=== PATIENT | male | born 1930 | race Caucasian/White ===

== ENCOUNTER → 2016-08-22 | Outpatient (CLI) | payer OTHER, MEDICARE ==
[~2016-08-22] MED LIST: AMITRIPTYLINE H25 M2 PO; APAP500 PO; ASPIR 8181 MG PO; BIOTIN2500 MCG PO; CHROMIUM200 MCG PO; DEMADEX10 MG PO; GLUCOPHAGE XR750 MG PO; GLUCOPHAGE500 MG OR; HYDROCODONE-AP1 EAC6 PO; LANTUS SUBQ; LISINOPRIL10 MG PO; LISINOPRIL5 MG OR; LOPRESSOR25 PO; NIACIN SR 250250 MG PO; NORCO 5-325 TA1 EACH PO; NOVOLOG100 UNIT/1 SUBQ; PLAVIX 75 MG TA75 M1 PO; PRAVACHOL40 MG PO; TOPROL XL25 MG OR; TUMS PO; VANCO 1.251.25 GM/25 IV; VITAMIN D1000 UNI1 PO; ZOFRAN ODT4 MG PO; [UNRECOGNIZED DRUG - OTHER] OR
== END ==
LOC: HYPER 07:06
DX: I70.243 Atherosclerosis of native arteries of left leg with ulceration of ankle (principal); L97.322 Non-pressure chronic ulcer of left ankle with fat layer exposed; E11.622 Type 2 diabetes mellitus with other skin ulcer; L89.512 Pressure ulcer of right ankle, stage 2; S81.802D Unspecified open wound, left lower leg, subsequent encounter; E11.51 Type 2 diabetes mellitus with diabetic peripheral angiopathy without gangrene; E11.40 Type 2 diabetes mellitus with diabetic neuropathy, unspecified; I70.211 Atherosclerosis of native arteries of extremities with intermittent claudication, right leg; I25.10 Atherosclerotic heart disease of native coronary artery without angina pectoris; E78.00 Pure hypercholesterolemia, unspecified; I95.1 Orthostatic hypotension; X58.XXXD Exposure to other specified factors, subsequent encounter; Z79.4 Long term (current) use of insulin; Z79.84 Long term (current) use of oral hypoglycemic drugs; Z86.73 Personal history of transient ischemic attack (TIA), and cerebral infarction without residual deficits; Z87.891 Personal history of nicotine dependence; Z72.89 Other problems related to lifestyle

== ENCOUNTER → 2016-09-05 | Outpatient (CLI) | payer OTHER, MEDICARE | LOC: HYPER 07:07 | DX: I70.243 Atherosclerosis of native arteries of left leg with ulceration of ankle (principal); L97.322 Non-pressure chronic ulcer of left ankle with fat layer exposed; E11.622 Type 2 diabetes mellitus with other skin ulcer; L89.512 Pressure ulcer of right ankle, stage 2; L89.621 Pressure ulcer of left heel, stage 1; I70.211 Atherosclerosis of native arteries of extremities with intermittent claudication, right leg; S81.802D Unspecified open wound, left lower leg, subsequent encounter; E11.51 Type 2 diabetes mellitus with diabetic peripheral angiopathy without gangrene; E11.40 Type 2 diabetes mellitus with diabetic neuropathy, unspecified; E78.00 Pure hypercholesterolemia, unspecified; X58.XXXD Exposure to other specified factors, subsequent encounter; Z79.4 Long term (current) use of insulin; Z79.84 Long term (current) use of oral hypoglycemic drugs; Z87.891 Personal history of nicotine dependence; Z72.89 Other problems related to lifestyle; Z86.73 Personal history of transient ischemic attack (TIA), and cerebral infarction without residual deficits ==

== ENCOUNTER → 2016-09-13 | Outpatient (CLI) | payer OTHER, MEDICARE | LOC: HYPER 09:48 | DX: I70.243 Atherosclerosis of native arteries of left leg with ulceration of ankle (principal); L97.321 Non-pressure chronic ulcer of left ankle limited to breakdown of skin; I95.1 Orthostatic hypotension; L89.512 Pressure ulcer of right ankle, stage 2; E78.00 Pure hypercholesterolemia, unspecified; E11.40 Type 2 diabetes mellitus with diabetic neuropathy, unspecified; L89.621 Pressure ulcer of left heel, stage 1; E11.622 Type 2 diabetes mellitus with other skin ulcer; Z79.4 Long term (current) use of insulin; Z79.84 Long term (current) use of oral hypoglycemic drugs; Z95.1 Presence of aortocoronary bypass graft; Z86.73 Personal history of transient ischemic attack (TIA), and cerebral infarction without residual deficits; Z87.891 Personal history of nicotine dependence; Z72.89 Other problems related to lifestyle ==

== ENCOUNTER → 2016-11-01 | Outpatient (CLI) | payer OTHER, MEDICARE | LOC: HYPER 09-13 16:43 | DX: I70.243 Atherosclerosis of native arteries of left leg with ulceration of ankle (principal); L97.322 Non-pressure chronic ulcer of left ankle with fat layer exposed; E11.622 Type 2 diabetes mellitus with other skin ulcer; L97.312 Non-pressure chronic ulcer of right ankle with fat layer exposed; L89.621 Pressure ulcer of left heel, stage 1; E11.51 Type 2 diabetes mellitus with diabetic peripheral angiopathy without gangrene; E11.40 Type 2 diabetes mellitus with diabetic neuropathy, unspecified; E78.00 Pure hypercholesterolemia, unspecified; I70.211 Atherosclerosis of native arteries of extremities with intermittent claudication, right leg; G60.8 Other hereditary and idiopathic neuropathies; Z79.4 Long term (current) use of insulin; Z79.84 Long term (current) use of oral hypoglycemic drugs; Z86.73 Personal history of transient ischemic attack (TIA), and cerebral infarction without residual deficits; Z87.891 Personal history of nicotine dependence; Z72.89 Other problems related to lifestyle ==

== ENCOUNTER → 2016-11-28 | Outpatient (CLI) | payer OTHER, MEDICARE | LOC: HYPER 07:02 | DX: I70.243 Atherosclerosis of native arteries of left leg with ulceration of ankle (principal); L97.322 Non-pressure chronic ulcer of left ankle with fat layer exposed; L89.512 Pressure ulcer of right ankle, stage 2; E11.622 Type 2 diabetes mellitus with other skin ulcer; E11.51 Type 2 diabetes mellitus with diabetic peripheral angiopathy without gangrene; E78.00 Pure hypercholesterolemia, unspecified; E11.40 Type 2 diabetes mellitus with diabetic neuropathy, unspecified; I95.1 Orthostatic hypotension; Z95.1 Presence of aortocoronary bypass graft; Z87.891 Personal history of nicotine dependence; Z72.89 Other problems related to lifestyle; Z79.4 Long term (current) use of insulin; Z79.84 Long term (current) use of oral hypoglycemic drugs; Z86.73 Personal history of transient ischemic attack (TIA), and cerebral infarction without residual deficits ==

== ENCOUNTER → 2016-12-26 | Outpatient (CLI) | payer OTHER, MEDICARE | LOC: HYPER 07:01 | DX: I70.243 Atherosclerosis of native arteries of left leg with ulceration of ankle (principal); L97.322 Non-pressure chronic ulcer of left ankle with fat layer exposed; E11.622 Type 2 diabetes mellitus with other skin ulcer; R60.0 Localized edema; G60.8 Other hereditary and idiopathic neuropathies; L89.512 Pressure ulcer of right ankle, stage 2; E11.39 Type 2 diabetes mellitus with other diabetic ophthalmic complication; H40.9 Unspecified glaucoma; I25.10 Atherosclerotic heart disease of native coronary artery without angina pectoris; E78.00 Pure hypercholesterolemia, unspecified; E11.40 Type 2 diabetes mellitus with diabetic neuropathy, unspecified; E11.51 Type 2 diabetes mellitus with diabetic peripheral angiopathy without gangrene; I95.1 Orthostatic hypotension; Z86.73 Personal history of transient ischemic attack (TIA), and cerebral infarction without residual deficits; Z79.4 Long term (current) use of insulin; Z79.84 Long term (current) use of oral hypoglycemic drugs; Z98.49 Cataract extraction status, unspecified eye; Z95.1 Presence of aortocoronary bypass graft; Z87.891 Personal history of nicotine dependence; Z72.89 Other problems related to lifestyle; Z68.21 Body mass index [BMI] 21.0-21.9, adult ==

== ENCOUNTER → 2017-01-23 | Outpatient (CLI) | payer OTHER, MEDICARE | LOC: HYPER 07:03 | DX: I70.243 Atherosclerosis of native arteries of left leg with ulceration of ankle (principal); I70.211 Atherosclerosis of native arteries of extremities with intermittent claudication, right leg; E11.622 Type 2 diabetes mellitus with other skin ulcer; L97.312 Non-pressure chronic ulcer of right ankle with fat layer exposed; L97.322 Non-pressure chronic ulcer of left ankle with fat layer exposed; E11.51 Type 2 diabetes mellitus with diabetic peripheral angiopathy without gangrene; R60.0 Localized edema; G60.8 Other hereditary and idiopathic neuropathies; I25.10 Atherosclerotic heart disease of native coronary artery without angina pectoris; E78.00 Pure hypercholesterolemia, unspecified; E11.40 Type 2 diabetes mellitus with diabetic neuropathy, unspecified; Z79.84 Long term (current) use of oral hypoglycemic drugs; Z79.4 Long term (current) use of insulin; Z87.891 Personal history of nicotine dependence; Z72.89 Other problems related to lifestyle; Z95.1 Presence of aortocoronary bypass graft ==

== ENCOUNTER → 2017-02-20 | Outpatient (CLI) | payer OTHER, MEDICARE | LOC: HYPER 06:58 | DX: I70.243 Atherosclerosis of native arteries of left leg with ulceration of ankle (principal); L97.322 Non-pressure chronic ulcer of left ankle with fat layer exposed; L89.513 Pressure ulcer of right ankle, stage 3; E11.622 Type 2 diabetes mellitus with other skin ulcer; L97.312 Non-pressure chronic ulcer of right ankle with fat layer exposed; E11.51 Type 2 diabetes mellitus with diabetic peripheral angiopathy without gangrene; G60.8 Other hereditary and idiopathic neuropathies; E11.39 Type 2 diabetes mellitus with other diabetic ophthalmic complication; H40.9 Unspecified glaucoma; I25.10 Atherosclerotic heart disease of native coronary artery without angina pectoris; E78.00 Pure hypercholesterolemia, unspecified; E11.40 Type 2 diabetes mellitus with diabetic neuropathy, unspecified; I95.1 Orthostatic hypotension; Z98.49 Cataract extraction status, unspecified eye; Z95.1 Presence of aortocoronary bypass graft; Z87.891 Personal history of nicotine dependence; Z72.89 Other problems related to lifestyle; Z79.4 Long term (current) use of insulin; Z79.84 Long term (current) use of oral hypoglycemic drugs; Z86.73 Personal history of transient ischemic attack (TIA), and cerebral infarction without residual deficits ==

== ENCOUNTER → 2017-03-13 | Outpatient (CLI) | payer OTHER, MEDICARE | LOC: HYPER 06:57 | DX: E11.622 Type 2 diabetes mellitus with other skin ulcer (principal); L97.312 Non-pressure chronic ulcer of right ankle with fat layer exposed; L97.322 Non-pressure chronic ulcer of left ankle with fat layer exposed; I70.243 Atherosclerosis of native arteries of left leg with ulceration of ankle; L89.519 Pressure ulcer of right ankle, unspecified stage; E11.51 Type 2 diabetes mellitus with diabetic peripheral angiopathy without gangrene; I70.211 Atherosclerosis of native arteries of extremities with intermittent claudication, right leg; E11.40 Type 2 diabetes mellitus with diabetic neuropathy, unspecified; Z79.4 Long term (current) use of insulin; Z79.84 Long term (current) use of oral hypoglycemic drugs; Z86.73 Personal history of transient ischemic attack (TIA), and cerebral infarction without residual deficits; E78.00 Pure hypercholesterolemia, unspecified; I25.10 Atherosclerotic heart disease of native coronary artery without angina pectoris; Z87.891 Personal history of nicotine dependence; Z72.89 Other problems related to lifestyle; Z95.1 Presence of aortocoronary bypass graft ==

== ENCOUNTER → 2017-04-03 | Outpatient (CLI) | payer OTHER, MEDICARE | LOC: HYPER 06:59 | DX: E11.622 Type 2 diabetes mellitus with other skin ulcer (principal); L97.312 Non-pressure chronic ulcer of right ankle with fat layer exposed; L97.322 Non-pressure chronic ulcer of left ankle with fat layer exposed; I70.243 Atherosclerosis of native arteries of left leg with ulceration of ankle; I70.211 Atherosclerosis of native arteries of extremities with intermittent claudication, right leg; E11.51 Type 2 diabetes mellitus with diabetic peripheral angiopathy without gangrene; R60.0 Localized edema; G60.8 Other hereditary and idiopathic neuropathies; E78.00 Pure hypercholesterolemia, unspecified; Z79.4 Long term (current) use of insulin; Z79.84 Long term (current) use of oral hypoglycemic drugs; I25.10 Atherosclerotic heart disease of native coronary artery without angina pectoris; Z86.73 Personal history of transient ischemic attack (TIA), and cerebral infarction without residual deficits; Z95.1 Presence of aortocoronary bypass graft; Z87.891 Personal history of nicotine dependence ==

== ENCOUNTER → 2017-04-24 | Outpatient (CLI) | payer OTHER, MEDICARE | LOC: HYPER 06:47 | DX: I70.243 Atherosclerosis of native arteries of left leg with ulceration of ankle (principal); L89.513 Pressure ulcer of right ankle, stage 3; E11.622 Type 2 diabetes mellitus with other skin ulcer; L97.322 Non-pressure chronic ulcer of left ankle with fat layer exposed; L97.312 Non-pressure chronic ulcer of right ankle with fat layer exposed; E11.40 Type 2 diabetes mellitus with diabetic neuropathy, unspecified; G60.8 Other hereditary and idiopathic neuropathies; E11.39 Type 2 diabetes mellitus with other diabetic ophthalmic complication; H40.9 Unspecified glaucoma; I25.10 Atherosclerotic heart disease of native coronary artery without angina pectoris; E78.00 Pure hypercholesterolemia, unspecified; I95.1 Orthostatic hypotension; Z95.1 Presence of aortocoronary bypass graft; Z79.4 Long term (current) use of insulin; Z86.73 Personal history of transient ischemic attack (TIA), and cerebral infarction without residual deficits; Z79.84 Long term (current) use of oral hypoglycemic drugs; Z98.49 Cataract extraction status, unspecified eye; Z87.891 Personal history of nicotine dependence; Z72.89 Other problems related to lifestyle ==

== ENCOUNTER → 2017-05-22 | Outpatient (CLI) | payer OTHER, MEDICARE | LOC: HYPER 05-15 10:20 | DX: E11.622 Type 2 diabetes mellitus with other skin ulcer (principal); L97.322 Non-pressure chronic ulcer of left ankle with fat layer exposed; L89.513 Pressure ulcer of right ankle, stage 3; L97.312 Non-pressure chronic ulcer of right ankle with fat layer exposed; E11.51 Type 2 diabetes mellitus with diabetic peripheral angiopathy without gangrene; I70.211 Atherosclerosis of native arteries of extremities with intermittent claudication, right leg; Z79.4 Long term (current) use of insulin; Z79.84 Long term (current) use of oral hypoglycemic drugs; G60.8 Other hereditary and idiopathic neuropathies ==

== ENCOUNTER → 2017-06-03 | Outpatient (CLI) | payer OTHER, MEDICARE | LOC: HYPER 07:20 | DX: E11.622 Type 2 diabetes mellitus with other skin ulcer (principal); L97.312 Non-pressure chronic ulcer of right ankle with fat layer exposed; I70.243 Atherosclerosis of native arteries of left leg with ulceration of ankle; L97.322 Non-pressure chronic ulcer of left ankle with fat layer exposed; I70.233 Atherosclerosis of native arteries of right leg with ulceration of ankle; Z79.4 Long term (current) use of insulin; Z79.84 Long term (current) use of oral hypoglycemic drugs; G60.8 Other hereditary and idiopathic neuropathies; E78.00 Pure hypercholesterolemia, unspecified; E11.40 Type 2 diabetes mellitus with diabetic neuropathy, unspecified; Z87.891 Personal history of nicotine dependence; Z72.89 Other problems related to lifestyle ==

== ENCOUNTER → 2017-06-19 | Outpatient (CLI) | payer OTHER, MEDICARE | LOC: HYPER 07:06 | DX: I70.243 Atherosclerosis of native arteries of left leg with ulceration of ankle (principal); I70.233 Atherosclerosis of native arteries of right leg with ulceration of ankle; L89.513 Pressure ulcer of right ankle, stage 3; E11.622 Type 2 diabetes mellitus with other skin ulcer; L97.322 Non-pressure chronic ulcer of left ankle with fat layer exposed; L97.312 Non-pressure chronic ulcer of right ankle with fat layer exposed; L84 Corns and callosities; E11.40 Type 2 diabetes mellitus with diabetic neuropathy, unspecified; E11.39 Type 2 diabetes mellitus with other diabetic ophthalmic complication; H40.9 Unspecified glaucoma; I25.10 Atherosclerotic heart disease of native coronary artery without angina pectoris; E78.00 Pure hypercholesterolemia, unspecified; I95.1 Orthostatic hypotension; Z98.49 Cataract extraction status, unspecified eye; Z95.1 Presence of aortocoronary bypass graft; Z87.891 Personal history of nicotine dependence; Z79.4 Long term (current) use of insulin; Z86.73 Personal history of transient ischemic attack (TIA), and cerebral infarction without residual deficits; Z79.84 Long term (current) use of oral hypoglycemic drugs; Z72.89 Other problems related to lifestyle ==

== ENCOUNTER → 2017-07-01 | Outpatient (CLI) | payer OTHER, MEDICARE | LOC: HYPER 07:36 | DX: E11.622 Type 2 diabetes mellitus with other skin ulcer (principal); L97.312 Non-pressure chronic ulcer of right ankle with fat layer exposed; L97.322 Non-pressure chronic ulcer of left ankle with fat layer exposed; I70.243 Atherosclerosis of native arteries of left leg with ulceration of ankle; I70.233 Atherosclerosis of native arteries of right leg with ulceration of ankle; E11.51 Type 2 diabetes mellitus with diabetic peripheral angiopathy without gangrene; R60.0 Localized edema; G60.8 Other hereditary and idiopathic neuropathies; I25.10 Atherosclerotic heart disease of native coronary artery without angina pectoris; Z86.73 Personal history of transient ischemic attack (TIA), and cerebral infarction without residual deficits; E11.40 Type 2 diabetes mellitus with diabetic neuropathy, unspecified; E78.00 Pure hypercholesterolemia, unspecified; Z95.1 Presence of aortocoronary bypass graft; Z87.891 Personal history of nicotine dependence; Z79.4 Long term (current) use of insulin; Z79.84 Long term (current) use of oral hypoglycemic drugs ==

== ENCOUNTER → 2017-07-17 | Outpatient (CLI) | payer OTHER, MEDICARE | LOC: HYPER 07:57 | DX: I70.243 Atherosclerosis of native arteries of left leg with ulceration of ankle (principal); L97.322 Non-pressure chronic ulcer of left ankle with fat layer exposed; L97.312 Non-pressure chronic ulcer of right ankle with fat layer exposed; E11.622 Type 2 diabetes mellitus with other skin ulcer; I70.233 Atherosclerosis of native arteries of right leg with ulceration of ankle; E11.51 Type 2 diabetes mellitus with diabetic peripheral angiopathy without gangrene; G60.8 Other hereditary and idiopathic neuropathies; S91.302D Unspecified open wound, left foot, subsequent encounter; E11.39 Type 2 diabetes mellitus with other diabetic ophthalmic complication; H40.9 Unspecified glaucoma; Z86.73 Personal history of transient ischemic attack (TIA), and cerebral infarction without residual deficits; E78.00 Pure hypercholesterolemia, unspecified; E11.40 Type 2 diabetes mellitus with diabetic neuropathy, unspecified; Z87.891 Personal history of nicotine dependence; Z72.89 Other problems related to lifestyle; Z95.1 Presence of aortocoronary bypass graft; Z79.4 Long term (current) use of insulin; Z79.84 Long term (current) use of oral hypoglycemic drugs; X58.XXXD Exposure to other specified factors, subsequent encounter ==

== ENCOUNTER → 2017-07-31 | Outpatient (CLI) | payer OTHER, MEDICARE | LOC: HYPER 06:46 | DX: E11.622 Type 2 diabetes mellitus with other skin ulcer (principal); I70.243 Atherosclerosis of native arteries of left leg with ulceration of ankle; I70.233 Atherosclerosis of native arteries of right leg with ulceration of ankle; L97.312 Non-pressure chronic ulcer of right ankle with fat layer exposed; L97.322 Non-pressure chronic ulcer of left ankle with fat layer exposed; E11.51 Type 2 diabetes mellitus with diabetic peripheral angiopathy without gangrene; R60.0 Localized edema; G60.8 Other hereditary and idiopathic neuropathies; Z79.4 Long term (current) use of insulin; Z79.84 Long term (current) use of oral hypoglycemic drugs; I25.10 Atherosclerotic heart disease of native coronary artery without angina pectoris; Z86.73 Personal history of transient ischemic attack (TIA), and cerebral infarction without residual deficits; E11.40 Type 2 diabetes mellitus with diabetic neuropathy, unspecified; E78.00 Pure hypercholesterolemia, unspecified; Z95.1 Presence of aortocoronary bypass graft; Z87.891 Personal history of nicotine dependence; Z72.89 Other problems related to lifestyle ==

== ENCOUNTER → 2017-08-14 | Outpatient (CLI) | payer OTHER, MEDICARE | LOC: HYPER 06:46 | DX: I70.233 Atherosclerosis of native arteries of right leg with ulceration of ankle (principal); I70.243 Atherosclerosis of native arteries of left leg with ulceration of ankle; L97.322 Non-pressure chronic ulcer of left ankle with fat layer exposed; L97.312 Non-pressure chronic ulcer of right ankle with fat layer exposed; E11.622 Type 2 diabetes mellitus with other skin ulcer; E11.51 Type 2 diabetes mellitus with diabetic peripheral angiopathy without gangrene; G60.8 Other hereditary and idiopathic neuropathies; E11.39 Type 2 diabetes mellitus with other diabetic ophthalmic complication; H40.9 Unspecified glaucoma; I25.10 Atherosclerotic heart disease of native coronary artery without angina pectoris; E78.00 Pure hypercholesterolemia, unspecified; E11.40 Type 2 diabetes mellitus with diabetic neuropathy, unspecified; I95.1 Orthostatic hypotension; Z98.49 Cataract extraction status, unspecified eye; Z79.4 Long term (current) use of insulin; Z79.84 Long term (current) use of oral hypoglycemic drugs; Z86.73 Personal history of transient ischemic attack (TIA), and cerebral infarction without residual deficits; Z95.1 Presence of aortocoronary bypass graft; Z87.891 Personal history of nicotine dependence; Z72.89 Other problems related to lifestyle ==

== ENCOUNTER → 2017-09-03 | Outpatient (CLI) | payer OTHER, MEDICARE ==
[~2017-09-03] MED LIST changes: +CARVEDILOL12.5 MG PO; +COQ-10100 MG PO; +DOXYCYCLINE 10100 MG PO; +ELIQUIS5 MG PO; +FLAGYL500 MG PO; +UNICOMPLEX M TA1 TA1 PO; +VITAMIN D5000 UNIT PO
== END ==
LOC: HYPER 08-29 06:38
DX: I70.243 Atherosclerosis of native arteries of left leg with ulceration of ankle (principal); I70.233 Atherosclerosis of native arteries of right leg with ulceration of ankle; L97.322 Non-pressure chronic ulcer of left ankle with fat layer exposed; L97.312 Non-pressure chronic ulcer of right ankle with fat layer exposed; E11.622 Type 2 diabetes mellitus with other skin ulcer; E11.51 Type 2 diabetes mellitus with diabetic peripheral angiopathy without gangrene; G60.8 Other hereditary and idiopathic neuropathies; E11.39 Type 2 diabetes mellitus with other diabetic ophthalmic complication; H40.9 Unspecified glaucoma; I25.10 Atherosclerotic heart disease of native coronary artery without angina pectoris; E78.00 Pure hypercholesterolemia, unspecified; E11.40 Type 2 diabetes mellitus with diabetic neuropathy, unspecified; I95.1 Orthostatic hypotension; Z86.73 Personal history of transient ischemic attack (TIA), and cerebral infarction without residual deficits; Z79.4 Long term (current) use of insulin; Z79.84 Long term (current) use of oral hypoglycemic drugs; Z98.49 Cataract extraction status, unspecified eye; Z95.1 Presence of aortocoronary bypass graft; Z87.891 Personal history of nicotine dependence; Z72.89 Other problems related to lifestyle

== ENCOUNTER 2017-09-13 15:36 | Inpatient (IN) | payer OTHER, MEDICARE ==
[~2017-09-13] VITALS: Ht 177.8 cm; Wt 70.8 kg
--- NOTE | ~2017-09-13 | D ---
[facility] [place] [address] DISCHARGE SUMMARY Name: YUDELKA VASQUES Room #: 440-P ADM IN M.R.#: [id number] Admission: 09/13/17 Attend Phys: Danilo Harper MD Discharge: Date of : 29 Report #: [id number] THIS REPORT FOR: //name// CC: Danilo Harper DATE OF SERVICE: 09/18/2017 This is an 86-year-old male with peripheral vascular disease and multiple lower extremity ulcerations complicated by osteomyelitis, followed regularly by Dr. Bender and Dr. Jose Espitia. The patient began to have acute onset of abdominal pain with associated bloody diarrhea. He presented to the emergency room where he was admitted for lower gastrointestinal bleeding. CT scan was suggestive of thickening of the sigmoid region of the colon consistent with a diagnosis of segmental colitis. Because of the patient's past medical history, a diagnosis of ischemic segmental colitis was made. The patient was hospitalized for management. HOSPITAL COURSE: The patient was admitted to the hospital and started on intravenous ciprofloxacin and metronidazole and IV fluids. He had serial laboratory monitors and was noted to have some progressive anemia with initial hemoglobin of 11.6 falling as low as 8.9 grams at the time of discharge. The patient also had initial elevation of white blood cell count of 21,200 without associated lactic acidosis. His white blood cell count dropped sequentially to a discharge 9600. Renal function remained normal, although the patient has known chronic kidney disease. His initial creatinine was 1.7 and discharge creatinine of 1.2. The patient continued to have intermittent bloody diarrhea and left lower quadrant tenderness, which was improving. He did have acute urinary retention, which required placement of a Self catheter, which was successfully removed 48 hours prior to his discharge. During hospitalization, some episodes of elevated blood pressure, but treated with reinstitution of his own home medications, but no other complications occurred. The patient was seen in consult by Dr. Bassem Burrell from wound care with subsequent followup by Dr. Jose Espitia who reinforced his outpatient wound management. FINAL DIAGNOSES: 1. Acute segmental ischemic colitis. 2. Acute urinary retention, resolved. 3. Acute blood loss anemia. 4. Benign essential hypertension. 5. Peripheral artery disease. 6. Diabetes mellitus type 2. 7. Acute hypoglycemia, resolved. 8. Chronic kidney disease stage 3, stable. [address] [address] DISCHARGE SUMMARY Name: CAPRICEYUDELKA Room #: 440-P [facility] IN M.R.#: [id number] Admission: 09/13/17 Attend Phys: Danilo Harper MD Discharge: Date of : 29 Report #: [id number] DISCHARGE MEDICATIONS: Doxycycline 100 mg b.i.d., metronidazole 500 mg b.i.d. for 10 days, lisinopril 2.5 mg daily, metoprolol tartrate 25 mg daily, torsemide 20 mg daily, Lantus insulin 20-24 units at bedtime, metformin XR 750 mg b.i.d., pravastatin 40 mg at bedtime, amitriptyline 25 mg at bedtime, aspirin 81 mg, clopidogrel 75 mg, and CPAP with supplemental vitamins. DISPOSITION: The patient is to continue outpatient management of the wounds with Dr. Jose Espitia and to see Dr. Harper in followup in 7-10 days, resume activity as tolerated with home health services as needed for wound care services. LEG BREAKER: Bassem Burrell MD (wound care). <ELECTRONICALLY SIGNED> By: Danilo Harper MD 09/18/17 1752 [id number] [id number] Danilo Harper MD /nt
--- NOTE | ~2017-09-13 | H ---
[facility] [address] HISTORY AND PHYSICAL Name: YUDELKA VASQUES Room #: 440-P ADM IN M.R.#: [id number] Admission: 09/13/17 Attend Phys: Danilo Harper MD Discharge: Date of : 29 Report #: [id number] THIS REPORT FOR: //name// CC: Danilo Harper DATE OF SERVICE: 09/13/2017 This is an 86-year-old male with known vascular disease and diabetes mellitus who presented to the Emergency Room where he was evaluated by Dr. Arya Boswell. CHIEF COMPLAINT: Abdominal pain, cramping. HISTORY OF PRESENT ILLNESS: This patient stopped into a grocery store to have a bowel movement and when he stood up, he passed out. He was found on the floor of the bathroom with pale color and sweating. He was brought to the Emergency Room where he had another large bloody stool with abdominal pain and cramping. A CT scan there revealed a thickened segment of the sigmoid colon without overt signs of diverticulitis and without perforation or free air. Clinically, the patient was assessed as having acute segmental colitis, ischemic variety. His white blood cell count was elevated to 21,200 and his hemoglobin was 11.6. Serial hemoglobins were ordered. The patient was treated with a dose of levofloxacin and ciprofloxacin and admitted to the floor. Overnight, the patient has continued to have abdominal cramping pain and rectal bleeding with a gradual drop in hemoglobin to 10.3 grams. His white blood cell count has improved from 21,000 to 16,000. Platelet count has also dropped slightly from 123,000 to 98,000 during this period. The patient had not had any abdominal pain until this very acute onset of discomfort. Specifically, he had no left lower quadrant pain to suggest diverticulitis. PAST MEDICAL HISTORY: The patient has chronic obstructive pulmonary disease, type 2 diabetes mellitus complicated by both peripheral neuropathy and nephropathy. He has chronic kidney disease, stage 3 and chronic thrombocytopenia. 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 Has generalized atherosclerosis including coronaries with history of an acute inferior CA in 2006, right renal artery stenosis, involvement of the aortoiliac carotids requiring carotid endarterectomy in 2013, the right vertebral which is high grade and peripheral arterial disease for which he has required multiple stent procedures because of ischemic ulcerations of his feet and ankles. Has obstructive sleep apnea and Dupuytren contracture. PAST SURGICAL HISTORY: In 1953, an appendectomy. Has had vasectomy, circumcision and L5 laminectomy. In 2006, coronary bypass. In 2010, hydrocele repair, has had bilateral cataracts with lens implants. In 2013, a left carotid [address] [address] HISTORY AND PHYSICAL Name: CAPRICEYUDELKA KALEB Room #: 440-P [facility] IN M.R.#: [id number] Admission: 09/13/17 Attend Phys: Danilo Harper MD Discharge: Date of : 29 Report #: [id number] endarterectomy. In 2016, left superficial femoral artery stent, left anterior tibial atherectomy. In the same year had a right superficial femoral artery stent with multiple peripheral vascular procedures subsequently. MEDICATIONS: Amitriptyline 25 mg at bedtime, lisinopril 5 mg daily, metoprolol tartrate 25 mg daily, torsemide 20 mg daily, metformin XR 750 mg b.i.d., clopidogrel 75 mg, aspirin 81 mg, pravastatin 40 mg, Lantus insulin 20-24 units at bedtime and CPAP 7 cm. ALLERGIES: TETRACYCLINE, INTOLERANCE OF BOTH ROSUVASTATIN AND ATORVASTATIN. SOCIAL HISTORY: The patient is a retired storage engineer, graduated of [employer], , lives at [place]. Has been under chronic care of Dr. Brando Bender and Dr. Jose Espitia for peripheral artery disease and foot and ankle ulcerations. PHYSICAL EXAMINATION: GENERAL: The patient is alert, anxious, in pain, getting up out of the bed with nursing help for bedside commode. VITAL SIGNS: Blood pressure 150/61, pulse 72, respiratory rate 22, temperature 36.7. LUNGS: Clear. CARDIOVASCULAR: There is a grade 2 basilar systolic murmur. Femoral arteries are palpable. There is a left carotid scar with no bruit. No peripheral edema is present. Jugular venous pressure is low. ABDOMEN: Very tender in left lower quadrant, guards somewhat distended. RECTAL: Deferred. Bright red rectal bleeding is noted. GENITOURINARY: Self catheter in place with light red urine. SKIN: Multiple ulcerations, which are dressed in the lower extremities. IMPRESSION: 1. Abdominal pain with bloody diarrhea consistent with segmental colitis. Less likely acute diverticulitis. No signs of surgical abdomen at this time. 2. Diabetes mellitus. 3. Chronic kidney disease, stage 3. 4. Generalized atherosclerosis with peripheral artery disease. 5. Multiple ulcerations of feet and ankles secondary to diabetes and peripheral artery disease. PLAN: We will continue the patient on Cipro and Flagyl and remain on a clear liquid diet with sliding scale Humalog insulin for diabetes management. Blood glucose a.c. and at bedtime, consult Dr. Espitia for management of his wounds. [facility] [address] [place] [address] HISTORY AND PHYSICAL Name: YUDELKA VASQUES Room #: 440-P [facility] IN .R.#: [id number] Admission: 09/13/17 Attend Phys: Danilo Harper MD Discharge: Date of : 29 Report #: [id number] Morphine for pain management. Withdraw torsemide, lisinopril, amitriptyline and aspirin, but remain on clopidogrel. <ELECTRONICALLY SIGNED> By: Danilo Harper MD 09/14/17 [id number] Danilo Harper MD /nt
--- NOTE | ~2017-09-13 | HC ---
[facility] [place] [address] CONSULTATION Name: YUDELKA VASQUES Room #: 440-P ADM IN M.R.#: [id number] Admission: 09/13/17 Attend Phys: Danilo Harper MD Discharge: Date of : 29 Report #: [id number] THIS REPORT FOR: //name// CC: Danilo Harper DATE OF SERVICE: 09/14/2017 REASON FOR CONSULTATION: Chronic nonhealing ulcers of right and left lateral malleolus for Hospital Wound Care. HISTORY: The patient is an 86-year-old gentleman well known to Dr. Jose Espitia in the [facility] where he has been seen since 02/2016. The patient is known to have peripheral arterial disease of the lower extremities and underwent angioplasty by Dr. Brando Bender 02/2016. He has been treated at the wound care clinic for chronic nonhealing ulcerations of the left and right lateral malleolus which have an arterial component. The patient was admitted to [facility] at this time for lower GI bleed with melenic thank stools and a CT scan suspicious for segmental colitis with abdominal cramps, Dr. Harper was consulted with wound care team for care of his chronic leg wound while he is in the hospital. CURRENT MEDICATIONS: Include atorvastatin, Cipro, Plavix, Toprol, insulin lispro, metronidazole, Levaquin, Flagyl, Protonix. PAST MEDICAL HISTORY: Includes insulin-dependent diabetes mellitus type 2, peripheral arterial disease of the lower extremities, current lower GI bleed with melena. LABORATORY DATA: Sodium 134, potassium 5.0, creatinine 1.8. White blood count 16.7, hemoglobin 10.3, hematocrit 30.5, platelet count 98. RADIOLOGY: CT scan shows thickening of the left colon suggestive of colitis. PHYSICAL EXAMINATION: GENERAL: Shows an 86-year-old gentleman who is alert. HEENT: Mucous membranes are moist. NECK: Supple. LUNGS: Respirations unlabored. HEART: Shows regular rate and rhythm. ABDOMEN: Soft. EXTREMITIES: Examination of the lower extremities shows chronic-appearing ulcerations of the left and right lateral malleolus, each measuring approximately 2 x 1.5 cm. These are chronic in appearance with hyperkeratosis at the edges. The bases of the wound showed some desiccated non-necrotic tissue. There is no obvious exposed bone. No surrounding redness. Pulses are palpable. [address] [address] CONSULTATION Name: YUDELKA VASQUES Room #: 440-P [facility] IN M.R.#: [id number] Admission: 09/13/17 Attend Phys: Danilo Harper MD Discharge: Date of : 29 Report #: [id number] IMPRESSION: 1. 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 2. Diabetes mellitus type 2 with skin ulceration. PLAN: Topical care of the wound with gentamicin 1% ointment and Optifoam border. Wound Care team will follow. Healing attempts in the clinic have included skin substitutes such as PriMatrix. During this hospitalization, we will focus on the patient's acute problem of lower GI bleed with melena. Chronic wound care for lower extremity wound will be continued at the wound care clinic. We will follow the patient while in the hospital. <ELECTRONICALLY SIGNED> By: Bassem Burrell MD 09/17/17 1204 [id number] Bassem Burrell MD /nt
[~2017-09-13 15:36] MED LIST changes: -CARVEDILOL12.5 MG PO; -COQ-10100 MG PO; -DOXYCYCLINE 10100 MG PO; -ELIQUIS5 MG PO; -FLAGYL500 MG PO; -UNICOMPLEX M TA1 TA1 PO; -VITAMIN D5000 UNIT PO
[2017-09-13 16:26] VITALS: BP 122/30
[2017-09-13 17:40] LABS: HEMATOCRIT 34.9 % (42.0-52.0); HEMOGLOBIN 11.6 gm/dL (14.0-18.0); MCH 28.9 pg (26.0-34.0); MCHC 33.3 g/dL (28.0-37.0); MCV 86.7 fL (80.0-100.0); RBC 4.02 mil/uL (4.50-6.00); RDW 16.3 % (10.5-14.5); WBC 21.2 thou/uL (4.0-11.0)
[2017-09-13 17:47] LABS: CALCIUM 8.8 mg/dL (8.5-10.1); CREATININE 1.8 mg/dL (0.7-1.3)
[2017-09-13 17:53] LABS: ALBUMIN 3.5 g/dL (3.4-5.0); TOTAL BILIRUBIN 0.5 mg/dL (<0.1-1.0); TOTAL PROTEIN 6.6 g/dL (6.4-8.2)
[2017-09-13 17:55] LABS: APTT 33.2 Seconds (24.5-32.8); PROTIME 10.7 Seconds (9.3-11.4)
[2017-09-13 21:03] VITALS: BP 113/41
[2017-09-13 22:15] LABS: HEMATOCRIT 32.9 % (42.0-52.0); MCHC 33.4 g/dL (28.0-37.0); MCV 86.9 fL (80.0-100.0); RBC 3.79 mil/uL (4.50-6.00); RDW 16.7 % (10.5-14.5); WBC 17.8 thou/uL (4.0-11.0)
[2017-09-13 22:34] VITALS: BP 129/53
[2017-09-14 01:11] LABS: HEMATOCRIT 30.5 % (42.0-52.0); HEMOGLOBIN 10.3 gm/dL (14.0-18.0); MCH 29.3 pg (26.0-34.0); MCHC 33.8 g/dL (28.0-37.0); MCV 86.7 fL (80.0-100.0); RBC 3.52 mil/uL (4.50-6.00); RDW 16.4 % (10.5-14.5); WBC 16.7 thou/uL (4.0-11.0)
[2017-09-14 01:16] LABS: URINE BILIRUBIN NEGATIVE (Negative); URINE BLOOD NEGATIVE (Negative); URINE CLARITY CLEAR; URINE COLOR YELLOW; URINE GLUCOSE-RANDOM* TRACE (Negative); URINE KETONES NEGATIVE (Negative); URINE LEUKOCYTES-REFLEX NEGATIVE (Negative); URINE NITRITE-REFLEX NEGATIVE (Negative); URINE PROTEIN (DIPSTICK) NEGATIVE (Negative); URINE SPECIFIC GRAVITY <= 1.005 (1.005-1.035); URINE UROBILINOGEN 0.2 E.U./dl (0.2-1.0)
[2017-09-14 06:53] VITALS: BP 150/61
[2017-09-14 07:18] LABS: HEMATOCRIT 32.5 % (42.0-52.0); HEMOGLOBIN 10.7 gm/dL (14.0-18.0); MCH 28.6 pg (26.0-34.0); MCHC 32.9 g/dL (28.0-37.0); MCV 87.1 fL (80.0-100.0); RBC 3.73 mil/uL (4.50-6.00); RDW 16.1 % (10.5-14.5); WBC 19.4 thou/uL (4.0-11.0)
[2017-09-14 08:00] VITALS: BP 157/55
[2017-09-14 16:00] VITALS: BP 139/39
[2017-09-14 19:28] VITALS: BP 166/49
[2017-09-15 03:38] VITALS: BP 140/51
[2017-09-15 06:25] LABS: HEMATOCRIT 27.3 % (42.0-52.0); HEMOGLOBIN 9.2 gm/dL (14.0-18.0); MCH 29.4 pg (26.0-34.0); MCHC 33.7 g/dL (28.0-37.0); MCV 87.4 fL (80.0-100.0); RBC 3.12 mil/uL (4.50-6.00); RDW 16.5 % (10.5-14.5)
[2017-09-15 06:36] LABS: ALBUMIN 2.4 g/dL (3.4-5.0); CALCIUM 7.9 mg/dL (8.5-10.1); CREATININE 1.1 mg/dL (0.7-1.3); POTASSIUM 3.6 mmol/L (3.5-5.1); TOTAL BILIRUBIN 0.4 mg/dL (<0.1-1.0); TOTAL PROTEIN 5.2 g/dL (6.4-8.2)
[2017-09-15 09:13] VITALS: BP 165/45
[2017-09-15 17:47] VITALS: BP 141/48
[2017-09-15 20:13] VITALS: BP 185/56
[2017-09-16 04:30] VITALS: BP 142/46
[2017-09-16 08:00] VITALS: BP 189/49
[2017-09-16 16:00] VITALS: BP 190/55
[2017-09-16 20:38] VITALS: BP 190/68
[2017-09-16 20:45] VITALS: BP 167/61
[2017-09-16 23:37] VITALS: BP 110/47
[2017-09-17 01:44] VITALS: BP 143/43
[2017-09-17 03:22] VITALS: BP 158/61
[2017-09-17 06:59] LABS: ABSOLUTE NEUTROPHILS 7.3 thou/uL (1.4-8.2); BASOPHILS 0.4 % (0.0-2.0); EOSINOPHILS 0.7 % (0.0-3.0); HEMATOCRIT 26.3 % (42.0-52.0); HEMOGLOBIN 8.9 gm/dL (14.0-18.0); LYMPHOCYTES 12.1 % (24.0-44.0); MCH 29.3 pg (26.0-34.0); MCHC 33.8 g/dL (28.0-37.0); MCV 86.7 fL (80.0-100.0); MONOCYTES 10.2 % (1.0-8.0); PLATELET COUNT 87 thou/uL (150-400); POLYS 76.6 % (36.0-66.0); RBC 3.04 mil/uL (4.50-6.00); RDW 16.7 % (10.5-14.5); WBC 9.6 thou/uL (4.0-11.0)
[2017-09-17 07:07] LABS: CALCIUM 7.5 mg/dL (8.5-10.1); CREATININE 1.2 mg/dL (0.7-1.3); POTASSIUM 3.5 mmol/L (3.5-5.1)
[2017-09-17 08:19] VITALS: BP 149/50
[2017-09-17 15:39] VITALS: BP 160/47
[2017-09-17 19:55] VITALS: BP 164/41
[2017-09-18 03:17] VITALS: BP 130/60
[2017-09-18] MEDS ORDERED: FLAGYL500 MG PO (07:07)
[2017-09-18 08:15] VITALS: BP 141/52
[2017-09-18 10:27] VITALS: BP 141/54
[2017-09-18 12:11] VITALS: BP 148/68
[2017-09-18 15:19] VITALS: BP 142/44
[2018-06-06] MEDS ORDERED: UNICOMPLEX M TA1 TA1 PO (15:13)
[2018-06-06] MEDS ORDERED: CARVEDILOL12.5 MG PO (15:14)
[2018-06-06] MEDS ORDERED: VITAMIN D5000 UNIT PO (15:14)
[2018-06-06] MEDS ORDERED: COQ-10100 MG PO (15:15)
[2018-06-06] MEDS ORDERED: ELIQUIS5 MG PO (15:15)
[2018-06-06] MEDS ORDERED: DOXYCYCLINE 10100 MG PO (15:18)
== END 2017-09-18 18:30 | disposition home health service (06) | DRG 393 ==
LOC: ER 15:36 → EROBS 18:56 → 4S 18:56
PROVIDERS: Emergency Medicine; Internal Medicine
DX: K55.031 Focal (segmental) acute (reversible) ischemia of large intestine (principal); E43 Unspecified severe protein-calorie malnutrition; K92.1 Melena; L97.329 Non-pressure chronic ulcer of left ankle with unspecified severity; D62 Acute posthemorrhagic anemia; D72.829 Elevated white blood cell count, unspecified; E11.51 Type 2 diabetes mellitus with diabetic peripheral angiopathy without gangrene; R33.9 Retention of urine, unspecified; E11.649 Type 2 diabetes mellitus with hypoglycemia without coma; N18.3 Chronic kidney disease, stage 3 (moderate); J44.9 Chronic obstructive pulmonary disease, unspecified; I12.9 Hypertensive chronic kidney disease with stage 1 through stage 4 chronic kidney disease, or unspecified chronic kidney disease; E11.22 Type 2 diabetes mellitus with diabetic chronic kidney disease; E11.42 Type 2 diabetes mellitus with diabetic polyneuropathy; Z96.1 Presence of intraocular lens; I25.10 Atherosclerotic heart disease of native coronary artery without angina pectoris; I25.2 Old myocardial infarction; Z90.49 Acquired absence of other specified parts of digestive tract; Z98.52 Vasectomy status; Z79.4 Long term (current) use of insulin; Z95.5 Presence of coronary angioplasty implant and graft; Z98.42 Cataract extraction status, left eye; Z98.41 Cataract extraction status, right eye; Z95.820 Peripheral vascular angioplasty status with implants and grafts; Z95.1 Presence of aortocoronary bypass graft; Z88.1 Allergy status to other antibiotic agents; Z23 Encounter for immunization
CPT/HCPCS: 10100

== ENCOUNTER → 2017-09-26 | Outpatient (CLI) | payer OTHER, MEDICARE ==
[~2017-09-26] MED LIST changes: +CARVEDILOL12.5 MG PO; +COQ-10100 MG PO; +DOXYCYCLINE 10100 MG PO; +ELIQUIS5 MG PO; +FLAGYL500 MG PO; +UNICOMPLEX M TA1 TA1 PO; +VITAMIN D5000 UNIT PO
== END ==
LOC: HYPER 09-17 11:21
DX: I70.243 Atherosclerosis of native arteries of left leg with ulceration of ankle (principal); I70.233 Atherosclerosis of native arteries of right leg with ulceration of ankle; E11.622 Type 2 diabetes mellitus with other skin ulcer; L97.322 Non-pressure chronic ulcer of left ankle with fat layer exposed; L97.312 Non-pressure chronic ulcer of right ankle with fat layer exposed; E11.51 Type 2 diabetes mellitus with diabetic peripheral angiopathy without gangrene; R60.0 Localized edema; G60.8 Other hereditary and idiopathic neuropathies; I25.10 Atherosclerotic heart disease of native coronary artery without angina pectoris; E78.00 Pure hypercholesterolemia, unspecified; E11.40 Type 2 diabetes mellitus with diabetic neuropathy, unspecified; Z86.73 Personal history of transient ischemic attack (TIA), and cerebral infarction without residual deficits; Z79.4 Long term (current) use of insulin; Z79.84 Long term (current) use of oral hypoglycemic drugs; Z95.1 Presence of aortocoronary bypass graft; Z87.891 Personal history of nicotine dependence; Z72.89 Other problems related to lifestyle

== ENCOUNTER → 2017-10-10 | Outpatient (CLI) | payer OTHER, MEDICARE | LOC: HYPER 08:44 | DX: E11.622 Type 2 diabetes mellitus with other skin ulcer (principal); I70.233 Atherosclerosis of native arteries of right leg with ulceration of ankle; I70.243 Atherosclerosis of native arteries of left leg with ulceration of ankle; L97.322 Non-pressure chronic ulcer of left ankle with fat layer exposed; L97.312 Non-pressure chronic ulcer of right ankle with fat layer exposed; E11.51 Type 2 diabetes mellitus with diabetic peripheral angiopathy without gangrene; R60.0 Localized edema; G60.8 Other hereditary and idiopathic neuropathies; I25.10 Atherosclerotic heart disease of native coronary artery without angina pectoris; E78.00 Pure hypercholesterolemia, unspecified; E11.40 Type 2 diabetes mellitus with diabetic neuropathy, unspecified; Z86.73 Personal history of transient ischemic attack (TIA), and cerebral infarction without residual deficits; Z79.4 Long term (current) use of insulin; Z79.84 Long term (current) use of oral hypoglycemic drugs; Z95.1 Presence of aortocoronary bypass graft; Z87.891 Personal history of nicotine dependence; Z72.89 Other problems related to lifestyle ==

== ENCOUNTER → 2017-10-31 | Outpatient (CLI) | payer OTHER, MEDICARE | LOC: HYPER 10-24 11:23 | DX: E11.622 Type 2 diabetes mellitus with other skin ulcer (principal); I70.243 Atherosclerosis of native arteries of left leg with ulceration of ankle; I70.233 Atherosclerosis of native arteries of right leg with ulceration of ankle; L97.312 Non-pressure chronic ulcer of right ankle with fat layer exposed; L97.322 Non-pressure chronic ulcer of left ankle with fat layer exposed; E11.51 Type 2 diabetes mellitus with diabetic peripheral angiopathy without gangrene; R60.0 Localized edema; G60.8 Other hereditary and idiopathic neuropathies; I25.10 Atherosclerotic heart disease of native coronary artery without angina pectoris; E78.00 Pure hypercholesterolemia, unspecified; E11.40 Type 2 diabetes mellitus with diabetic neuropathy, unspecified; Z95.1 Presence of aortocoronary bypass graft; Z79.4 Long term (current) use of insulin; Z79.84 Long term (current) use of oral hypoglycemic drugs; Z87.891 Personal history of nicotine dependence; Z72.89 Other problems related to lifestyle ==

== ENCOUNTER → 2017-11-14 | Outpatient (CLI) | payer OTHER, MEDICARE | LOC: HYPER 07:20 | DX: I70.243 Atherosclerosis of native arteries of left leg with ulceration of ankle (principal); I70.233 Atherosclerosis of native arteries of right leg with ulceration of ankle; E11.622 Type 2 diabetes mellitus with other skin ulcer; L97.322 Non-pressure chronic ulcer of left ankle with fat layer exposed; L97.312 Non-pressure chronic ulcer of right ankle with fat layer exposed; E11.51 Type 2 diabetes mellitus with diabetic peripheral angiopathy without gangrene; R60.0 Localized edema; G60.8 Other hereditary and idiopathic neuropathies; Z79.4 Long term (current) use of insulin; Z79.84 Long term (current) use of oral hypoglycemic drugs; I25.10 Atherosclerotic heart disease of native coronary artery without angina pectoris; E78.00 Pure hypercholesterolemia, unspecified; E11.40 Type 2 diabetes mellitus with diabetic neuropathy, unspecified; Z95.1 Presence of aortocoronary bypass graft; Z87.891 Personal history of nicotine dependence ==

== ENCOUNTER → 2017-11-28 | Outpatient (CLI) | payer OTHER, MEDICARE ==
[~2017-11-28] MED LIST changes: -CARVEDILOL12.5 MG PO; -COQ-10100 MG PO; -DOXYCYCLINE 10100 MG PO; -ELIQUIS5 MG PO; -UNICOMPLEX M TA1 TA1 PO; -VITAMIN D5000 UNIT PO
== END ==
LOC: HYPER 06:52
DX: E11.622 Type 2 diabetes mellitus with other skin ulcer (principal); I70.233 Atherosclerosis of native arteries of right leg with ulceration of ankle; I70.243 Atherosclerosis of native arteries of left leg with ulceration of ankle; L97.322 Non-pressure chronic ulcer of left ankle with fat layer exposed; L97.312 Non-pressure chronic ulcer of right ankle with fat layer exposed; E11.51 Type 2 diabetes mellitus with diabetic peripheral angiopathy without gangrene; R60.0 Localized edema; G60.8 Other hereditary and idiopathic neuropathies; I25.10 Atherosclerotic heart disease of native coronary artery without angina pectoris; E78.00 Pure hypercholesterolemia, unspecified; E11.40 Type 2 diabetes mellitus with diabetic neuropathy, unspecified; Z95.1 Presence of aortocoronary bypass graft; Z79.4 Long term (current) use of insulin; Z79.84 Long term (current) use of oral hypoglycemic drugs; Z87.891 Personal history of nicotine dependence

== ENCOUNTER → 2017-12-12 | Outpatient (CLI) | payer OTHER, MEDICARE | LOC: HYPER 06:41 | DX: E11.622 Type 2 diabetes mellitus with other skin ulcer (principal); I70.243 Atherosclerosis of native arteries of left leg with ulceration of ankle; I70.233 Atherosclerosis of native arteries of right leg with ulceration of ankle; L97.312 Non-pressure chronic ulcer of right ankle with fat layer exposed; L97.322 Non-pressure chronic ulcer of left ankle with fat layer exposed; E11.51 Type 2 diabetes mellitus with diabetic peripheral angiopathy without gangrene; R60.0 Localized edema; G60.8 Other hereditary and idiopathic neuropathies; I25.10 Atherosclerotic heart disease of native coronary artery without angina pectoris; E78.00 Pure hypercholesterolemia, unspecified; E11.40 Type 2 diabetes mellitus with diabetic neuropathy, unspecified; Z79.4 Long term (current) use of insulin; Z79.84 Long term (current) use of oral hypoglycemic drugs; Z95.1 Presence of aortocoronary bypass graft; Z87.891 Personal history of nicotine dependence ==

== ENCOUNTER → 2017-12-19 | Outpatient (CLI) | payer OTHER, MEDICARE | LOC: HYPER 06:38 | DX: E11.622 Type 2 diabetes mellitus with other skin ulcer (principal); I70.243 Atherosclerosis of native arteries of left leg with ulceration of ankle; I70.233 Atherosclerosis of native arteries of right leg with ulceration of ankle; L97.322 Non-pressure chronic ulcer of left ankle with fat layer exposed; L97.312 Non-pressure chronic ulcer of right ankle with fat layer exposed; E11.51 Type 2 diabetes mellitus with diabetic peripheral angiopathy without gangrene; R60.0 Localized edema; G60.8 Other hereditary and idiopathic neuropathies; I25.10 Atherosclerotic heart disease of native coronary artery without angina pectoris; E78.00 Pure hypercholesterolemia, unspecified; E11.40 Type 2 diabetes mellitus with diabetic neuropathy, unspecified; Z86.73 Personal history of transient ischemic attack (TIA), and cerebral infarction without residual deficits; Z79.4 Long term (current) use of insulin; Z79.84 Long term (current) use of oral hypoglycemic drugs; Z95.1 Presence of aortocoronary bypass graft; Z87.891 Personal history of nicotine dependence ==

== ENCOUNTER → 2017-12-25 | Outpatient (CLI) | payer OTHER, MEDICARE | LOC: HYPER 06:51 | DX: E11.622 Type 2 diabetes mellitus with other skin ulcer (principal); I70.243 Atherosclerosis of native arteries of left leg with ulceration of ankle; L97.322 Non-pressure chronic ulcer of left ankle with fat layer exposed; I70.233 Atherosclerosis of native arteries of right leg with ulceration of ankle; L97.312 Non-pressure chronic ulcer of right ankle with fat layer exposed; E11.40 Type 2 diabetes mellitus with diabetic neuropathy, unspecified; E11.39 Type 2 diabetes mellitus with other diabetic ophthalmic complication; H40.9 Unspecified glaucoma; I25.10 Atherosclerotic heart disease of native coronary artery without angina pectoris; E78.00 Pure hypercholesterolemia, unspecified; R60.0 Localized edema; G60.8 Other hereditary and idiopathic neuropathies; Z95.1 Presence of aortocoronary bypass graft; Z73.9 Problem related to life management difficulty, unspecified; Z79.4 Long term (current) use of insulin; Z79.84 Long term (current) use of oral hypoglycemic drugs; Z87.891 Personal history of nicotine dependence ==

== ENCOUNTER → 2018-01-09 | Outpatient (CLI) | payer OTHER, MEDICARE | LOC: HYPER 06:51 | DX: E11.622 Type 2 diabetes mellitus with other skin ulcer (principal); I70.243 Atherosclerosis of native arteries of left leg with ulceration of ankle; I70.233 Atherosclerosis of native arteries of right leg with ulceration of ankle; L97.322 Non-pressure chronic ulcer of left ankle with fat layer exposed; L97.312 Non-pressure chronic ulcer of right ankle with fat layer exposed; L84 Corns and callosities; R60.0 Localized edema; G60.8 Other hereditary and idiopathic neuropathies; E11.51 Type 2 diabetes mellitus with diabetic peripheral angiopathy without gangrene; I25.10 Atherosclerotic heart disease of native coronary artery without angina pectoris; E78.00 Pure hypercholesterolemia, unspecified; Z79.4 Long term (current) use of insulin; Z79.84 Long term (current) use of oral hypoglycemic drugs; Z86.73 Personal history of transient ischemic attack (TIA), and cerebral infarction without residual deficits; Z95.1 Presence of aortocoronary bypass graft; Z87.891 Personal history of nicotine dependence ==

== ENCOUNTER → 2018-01-27 | Outpatient (CLI) | payer OTHER, MEDICARE | LOC: HYPER 06:55 | DX: E11.622 Type 2 diabetes mellitus with other skin ulcer (principal); I70.243 Atherosclerosis of native arteries of left leg with ulceration of ankle; L97.322 Non-pressure chronic ulcer of left ankle with fat layer exposed; I70.233 Atherosclerosis of native arteries of right leg with ulceration of ankle; L97.312 Non-pressure chronic ulcer of right ankle with fat layer exposed; S90.821D Blister (nonthermal), right foot, subsequent encounter; E11.51 Type 2 diabetes mellitus with diabetic peripheral angiopathy without gangrene; E11.39 Type 2 diabetes mellitus with other diabetic ophthalmic complication; H40.9 Unspecified glaucoma; E11.40 Type 2 diabetes mellitus with diabetic neuropathy, unspecified; L84 Corns and callosities; I25.10 Atherosclerotic heart disease of native coronary artery without angina pectoris; E78.00 Pure hypercholesterolemia, unspecified; G60.8 Other hereditary and idiopathic neuropathies; Z95.1 Presence of aortocoronary bypass graft; Z98.49 Cataract extraction status, unspecified eye; Z87.891 Personal history of nicotine dependence; Z79.4 Long term (current) use of insulin; Z79.84 Long term (current) use of oral hypoglycemic drugs; X58.XXXD Exposure to other specified factors, subsequent encounter ==

== ENCOUNTER → 2018-02-04 | Outpatient (CLI) | payer OTHER, MEDICARE | LOC: HYPER 06:53 | DX: I70.243 Atherosclerosis of native arteries of left leg with ulceration of ankle (principal); I70.233 Atherosclerosis of native arteries of right leg with ulceration of ankle; E11.622 Type 2 diabetes mellitus with other skin ulcer; L97.322 Non-pressure chronic ulcer of left ankle with fat layer exposed; L97.312 Non-pressure chronic ulcer of right ankle with fat layer exposed; E11.51 Type 2 diabetes mellitus with diabetic peripheral angiopathy without gangrene; G60.8 Other hereditary and idiopathic neuropathies; L84 Corns and callosities; I25.10 Atherosclerotic heart disease of native coronary artery without angina pectoris; E11.39 Type 2 diabetes mellitus with other diabetic ophthalmic complication; H40.9 Unspecified glaucoma; E11.40 Type 2 diabetes mellitus with diabetic neuropathy, unspecified; E78.00 Pure hypercholesterolemia, unspecified; Z95.1 Presence of aortocoronary bypass graft; Z87.891 Personal history of nicotine dependence; Z79.84 Long term (current) use of oral hypoglycemic drugs; Z79.4 Long term (current) use of insulin ==

== ENCOUNTER → 2018-02-10 | Outpatient (CLI) | payer OTHER, MEDICARE | LOC: HYPER 07:13 | DX: E11.622 Type 2 diabetes mellitus with other skin ulcer (principal); I70.243 Atherosclerosis of native arteries of left leg with ulceration of ankle; I70.233 Atherosclerosis of native arteries of right leg with ulceration of ankle; L97.312 Non-pressure chronic ulcer of right ankle with fat layer exposed; L97.322 Non-pressure chronic ulcer of left ankle with fat layer exposed; E11.51 Type 2 diabetes mellitus with diabetic peripheral angiopathy without gangrene; R60.0 Localized edema; G60.8 Other hereditary and idiopathic neuropathies; I25.10 Atherosclerotic heart disease of native coronary artery without angina pectoris; E11.40 Type 2 diabetes mellitus with diabetic neuropathy, unspecified; E78.00 Pure hypercholesterolemia, unspecified; Z95.1 Presence of aortocoronary bypass graft; Z79.4 Long term (current) use of insulin; Z79.84 Long term (current) use of oral hypoglycemic drugs; Z87.891 Personal history of nicotine dependence ==

== ENCOUNTER → 2018-02-27 | Outpatient (CLI) | payer OTHER, MEDICARE | LOC: HYPER 02-18 06:54 | DX: E11.622 Type 2 diabetes mellitus with other skin ulcer (principal); I70.243 Atherosclerosis of native arteries of left leg with ulceration of ankle; L97.322 Non-pressure chronic ulcer of left ankle with fat layer exposed; I70.233 Atherosclerosis of native arteries of right leg with ulceration of ankle; L97.312 Non-pressure chronic ulcer of right ankle with fat layer exposed; E11.51 Type 2 diabetes mellitus with diabetic peripheral angiopathy without gangrene; E11.39 Type 2 diabetes mellitus with other diabetic ophthalmic complication; H40.89 Other specified glaucoma; E11.40 Type 2 diabetes mellitus with diabetic neuropathy, unspecified; L84 Corns and callosities; I25.10 Atherosclerotic heart disease of native coronary artery without angina pectoris; E78.00 Pure hypercholesterolemia, unspecified; G60.9 Hereditary and idiopathic neuropathy, unspecified; Z95.1 Presence of aortocoronary bypass graft; Z79.4 Long term (current) use of insulin; Z79.84 Long term (current) use of oral hypoglycemic drugs; Z87.891 Personal history of nicotine dependence ==

== ENCOUNTER → 2018-03-04 | Outpatient (CLI) | payer OTHER, MEDICARE | LOC: HYPER 06:49 | DX: E11.622 Type 2 diabetes mellitus with other skin ulcer (principal); I70.243 Atherosclerosis of native arteries of left leg with ulceration of ankle; L97.322 Non-pressure chronic ulcer of left ankle with fat layer exposed; I70.233 Atherosclerosis of native arteries of right leg with ulceration of ankle; L97.312 Non-pressure chronic ulcer of right ankle with fat layer exposed; E11.51 Type 2 diabetes mellitus with diabetic peripheral angiopathy without gangrene; E11.39 Type 2 diabetes mellitus with other diabetic ophthalmic complication; H40.89 Other specified glaucoma; H42 Glaucoma in diseases classified elsewhere; E11.40 Type 2 diabetes mellitus with diabetic neuropathy, unspecified; E78.00 Pure hypercholesterolemia, unspecified; L84 Corns and callosities; I25.10 Atherosclerotic heart disease of native coronary artery without angina pectoris; G60.8 Other hereditary and idiopathic neuropathies; Z98.49 Cataract extraction status, unspecified eye; Z95.1 Presence of aortocoronary bypass graft; Z79.4 Long term (current) use of insulin; Z79.84 Long term (current) use of oral hypoglycemic drugs; Z87.891 Personal history of nicotine dependence ==

== ENCOUNTER → 2018-03-17 | Outpatient (CLI) | payer OTHER, MEDICARE | LOC: HYPER 06:51 | DX: E11.622 Type 2 diabetes mellitus with other skin ulcer (principal); I70.243 Atherosclerosis of native arteries of left leg with ulceration of ankle; L97.322 Non-pressure chronic ulcer of left ankle with fat layer exposed; I70.233 Atherosclerosis of native arteries of right leg with ulceration of ankle; L97.312 Non-pressure chronic ulcer of right ankle with fat layer exposed; E11.40 Type 2 diabetes mellitus with diabetic neuropathy, unspecified; E11.51 Type 2 diabetes mellitus with diabetic peripheral angiopathy without gangrene; E11.39 Type 2 diabetes mellitus with other diabetic ophthalmic complication; H40.9 Unspecified glaucoma; H42 Glaucoma in diseases classified elsewhere; I25.10 Atherosclerotic heart disease of native coronary artery without angina pectoris; L84 Corns and callosities; G60.8 Other hereditary and idiopathic neuropathies; E78.00 Pure hypercholesterolemia, unspecified; Z98.49 Cataract extraction status, unspecified eye; Z79.4 Long term (current) use of insulin; Z79.84 Long term (current) use of oral hypoglycemic drugs; Z95.1 Presence of aortocoronary bypass graft; Z87.891 Personal history of nicotine dependence ==

== ENCOUNTER → 2018-03-24 | Outpatient (CLI) | payer OTHER, MEDICARE | LOC: HYPER 06:41 | DX: E11.622 Type 2 diabetes mellitus with other skin ulcer (principal); I70.243 Atherosclerosis of native arteries of left leg with ulceration of ankle; L97.322 Non-pressure chronic ulcer of left ankle with fat layer exposed; I70.233 Atherosclerosis of native arteries of right leg with ulceration of ankle; L97.312 Non-pressure chronic ulcer of right ankle with fat layer exposed; E11.51 Type 2 diabetes mellitus with diabetic peripheral angiopathy without gangrene; E11.39 Type 2 diabetes mellitus with other diabetic ophthalmic complication; H42 Glaucoma in diseases classified elsewhere; E11.40 Type 2 diabetes mellitus with diabetic neuropathy, unspecified; I25.10 Atherosclerotic heart disease of native coronary artery without angina pectoris; E78.00 Pure hypercholesterolemia, unspecified; G60.8 Other hereditary and idiopathic neuropathies; Z95.1 Presence of aortocoronary bypass graft; Z79.4 Long term (current) use of insulin; Z79.84 Long term (current) use of oral hypoglycemic drugs; Z98.49 Cataract extraction status, unspecified eye; Z87.891 Personal history of nicotine dependence ==

== ENCOUNTER → 2018-04-08 | Outpatient (CLI) | payer OTHER, MEDICARE | LOC: HYPER 07:00 | DX: E11.622 Type 2 diabetes mellitus with other skin ulcer (principal); I70.243 Atherosclerosis of native arteries of left leg with ulceration of ankle; L97.322 Non-pressure chronic ulcer of left ankle with fat layer exposed; I70.233 Atherosclerosis of native arteries of right leg with ulceration of ankle; L97.312 Non-pressure chronic ulcer of right ankle with fat layer exposed; E11.51 Type 2 diabetes mellitus with diabetic peripheral angiopathy without gangrene; E11.40 Type 2 diabetes mellitus with diabetic neuropathy, unspecified; E11.39 Type 2 diabetes mellitus with other diabetic ophthalmic complication; H40.9 Unspecified glaucoma; H42 Glaucoma in diseases classified elsewhere; I25.10 Atherosclerotic heart disease of native coronary artery without angina pectoris; L84 Corns and callosities; E78.00 Pure hypercholesterolemia, unspecified; G60.8 Other hereditary and idiopathic neuropathies; Z79.4 Long term (current) use of insulin; Z79.84 Long term (current) use of oral hypoglycemic drugs; Z95.1 Presence of aortocoronary bypass graft; Z87.891 Personal history of nicotine dependence ==

== ENCOUNTER → 2018-06-06 | Outpatient (CLI) | payer OTHER, MEDICARE ==
[~2018-06-06] MED LIST changes: +CARVEDILOL12.5 MG PO; +COQ-10100 MG PO; +DOXYCYCLINE 10100 MG PO; +ELIQUIS5 MG PO; +UNICOMPLEX M TA1 TA1 PO; +VITAMIN D5000 UNIT PO
[2018-06-06 13:10] VITALS: BP 128/32
== END ==
LOC: OPONC 00:15
DX: N18.9 Chronic kidney disease, unspecified (principal); D63.1 Anemia in chronic kidney disease
CPT/HCPCS: 95112

== ENCOUNTER → 2018-06-12 | Outpatient (CLI) | payer OTHER, MEDICARE ==
[2018-06-12 12:25] VITALS: BP 140/71
== END ==
LOC: OPONC 02:37
DX: D64.9 Anemia, unspecified (principal); I12.9 Hypertensive chronic kidney disease with stage 1 through stage 4 chronic kidney disease, or unspecified chronic kidney disease; E11.22 Type 2 diabetes mellitus with diabetic chronic kidney disease; N18.3 Chronic kidney disease, stage 3 (moderate); N28.89 Other specified disorders of kidney and ureter; I70.1 Atherosclerosis of renal artery
CPT/HCPCS: 95112

== ENCOUNTER → 2018-06-19 | Outpatient (CLI) | payer OTHER, MEDICARE ==
[2018-06-19 12:55] VITALS: BP 141/63
== END ==
LOC: HYPER 02:57
DX: E11.622 Type 2 diabetes mellitus with other skin ulcer (principal); I70.243 Atherosclerosis of native arteries of left leg with ulceration of ankle; L97.322 Non-pressure chronic ulcer of left ankle with fat layer exposed; I70.233 Atherosclerosis of native arteries of right leg with ulceration of ankle; L97.312 Non-pressure chronic ulcer of right ankle with fat layer exposed; L84 Corns and callosities; E11.51 Type 2 diabetes mellitus with diabetic peripheral angiopathy without gangrene; E11.39 Type 2 diabetes mellitus with other diabetic ophthalmic complication; H40.9 Unspecified glaucoma; E11.22 Type 2 diabetes mellitus with diabetic chronic kidney disease; N18.3 Chronic kidney disease, stage 3 (moderate); E78.00 Pure hypercholesterolemia, unspecified; D63.1 Anemia in chronic kidney disease; G60.8 Other hereditary and idiopathic neuropathies; I25.10 Atherosclerotic heart disease of native coronary artery without angina pectoris; K21.9 Gastro-esophageal reflux disease without esophagitis; Z95.820 Peripheral vascular angioplasty status with implants and grafts; Z86.73 Personal history of transient ischemic attack (TIA), and cerebral infarction without residual deficits; Z87.891 Personal history of nicotine dependence; Z95.1 Presence of aortocoronary bypass graft; Z79.4 Long term (current) use of insulin; Z79.84 Long term (current) use of oral hypoglycemic drugs
CPT/HCPCS: 95112

== ENCOUNTER → 2018-06-26 | Outpatient (CLI) | payer OTHER, MEDICARE ==
[2018-06-26 15:27] VITALS: BP 131/38
== END ==
LOC: OPONC 00:36
DX: D64.9 Anemia, unspecified (principal); I12.9 Hypertensive chronic kidney disease with stage 1 through stage 4 chronic kidney disease, or unspecified chronic kidney disease; E11.22 Type 2 diabetes mellitus with diabetic chronic kidney disease; N18.3 Chronic kidney disease, stage 3 (moderate); N28.89 Other specified disorders of kidney and ureter; I70.1 Atherosclerosis of renal artery
CPT/HCPCS: 95112

== ENCOUNTER → 2018-07-03 | Outpatient (CLI) | payer OTHER, MEDICARE ==
[2018-07-03 13:02] VITALS: BP 128/48
== END ==
LOC: HYPER 02:10
DX: E11.622 Type 2 diabetes mellitus with other skin ulcer (principal); I70.243 Atherosclerosis of native arteries of left leg with ulceration of ankle; L97.322 Non-pressure chronic ulcer of left ankle with fat layer exposed; I70.233 Atherosclerosis of native arteries of right leg with ulceration of ankle; L97.315 Non-pressure chronic ulcer of right ankle with muscle involvement without evidence of necrosis; E11.22 Type 2 diabetes mellitus with diabetic chronic kidney disease; N18.3 Chronic kidney disease, stage 3 (moderate); D63.1 Anemia in chronic kidney disease; L84 Corns and callosities; E11.51 Type 2 diabetes mellitus with diabetic peripheral angiopathy without gangrene; E11.42 Type 2 diabetes mellitus with diabetic polyneuropathy; E11.39 Type 2 diabetes mellitus with other diabetic ophthalmic complication; H40.9 Unspecified glaucoma; E78.00 Pure hypercholesterolemia, unspecified; I25.10 Atherosclerotic heart disease of native coronary artery without angina pectoris; K21.9 Gastro-esophageal reflux disease without esophagitis; Z86.73 Personal history of transient ischemic attack (TIA), and cerebral infarction without residual deficits; Z79.4 Long term (current) use of insulin; Z79.84 Long term (current) use of oral hypoglycemic drugs; Z87.891 Personal history of nicotine dependence; Z95.1 Presence of aortocoronary bypass graft
CPT/HCPCS: 95112

== ENCOUNTER → 2018-07-09 | Outpatient (CLI) | payer OTHER, MEDICARE ==
[2018-07-09 12:33] VITALS: BP 150/37
== END ==
LOC: OPONC 08:01
DX: D64.9 Anemia, unspecified (principal); I12.9 Hypertensive chronic kidney disease with stage 1 through stage 4 chronic kidney disease, or unspecified chronic kidney disease; E11.22 Type 2 diabetes mellitus with diabetic chronic kidney disease; N18.3 Chronic kidney disease, stage 3 (moderate); N28.89 Other specified disorders of kidney and ureter; I70.1 Atherosclerosis of renal artery
CPT/HCPCS: 95112

== ENCOUNTER → 2018-07-17 | Outpatient (CLI) | payer OTHER, MEDICARE ==
[2018-07-17 14:17] VITALS: BP 146/38
== END ==
LOC: OPONC 00:23
DX: D64.9 Anemia, unspecified (principal); I12.9 Hypertensive chronic kidney disease with stage 1 through stage 4 chronic kidney disease, or unspecified chronic kidney disease; E11.22 Type 2 diabetes mellitus with diabetic chronic kidney disease; N18.3 Chronic kidney disease, stage 3 (moderate); N28.89 Other specified disorders of kidney and ureter; I70.1 Atherosclerosis of renal artery
CPT/HCPCS: 95112

== ENCOUNTER → 2018-07-24 | Outpatient (CLI) | payer OTHER, MEDICARE ==
[2018-07-24 13:11] VITALS: BP 161/51
== END ==
LOC: OPONC 00:58
DX: I12.9 Hypertensive chronic kidney disease with stage 1 through stage 4 chronic kidney disease, or unspecified chronic kidney disease (principal); E11.22 Type 2 diabetes mellitus with diabetic chronic kidney disease; N18.3 Chronic kidney disease, stage 3 (moderate); D64.9 Anemia, unspecified; I70.1 Atherosclerosis of renal artery; N28.89 Other specified disorders of kidney and ureter
CPT/HCPCS: 95112

== ENCOUNTER → 2018-07-31 | Outpatient (CLI) | payer OTHER, MEDICARE ==
[2018-07-31 12:42] LABS: HEMATOCRIT 31.4 % (42.0-52.0); HEMOGLOBIN 10.3 gm/dL (14.0-18.0)
[2018-07-31 13:02] VITALS: BP 138/57
== END ==
LOC: HYPER 00:31
PROVIDERS: Internal Medicine
DX: E11.622 Type 2 diabetes mellitus with other skin ulcer (principal); I70.243 Atherosclerosis of native arteries of left leg with ulceration of ankle; L97.322 Non-pressure chronic ulcer of left ankle with fat layer exposed; I70.233 Atherosclerosis of native arteries of right leg with ulceration of ankle; L97.312 Non-pressure chronic ulcer of right ankle with fat layer exposed; L84 Corns and callosities; E11.51 Type 2 diabetes mellitus with diabetic peripheral angiopathy without gangrene; E11.22 Type 2 diabetes mellitus with diabetic chronic kidney disease; N18.3 Chronic kidney disease, stage 3 (moderate); E11.39 Type 2 diabetes mellitus with other diabetic ophthalmic complication; H40.9 Unspecified glaucoma; E11.42 Type 2 diabetes mellitus with diabetic polyneuropathy; E78.00 Pure hypercholesterolemia, unspecified; D63.1 Anemia in chronic kidney disease; I25.10 Atherosclerotic heart disease of native coronary artery without angina pectoris; Z86.73 Personal history of transient ischemic attack (TIA), and cerebral infarction without residual deficits; Z95.820 Peripheral vascular angioplasty status with implants and grafts; Z79.4 Long term (current) use of insulin; Z79.84 Long term (current) use of oral hypoglycemic drugs; Z87.891 Personal history of nicotine dependence; Z95.1 Presence of aortocoronary bypass graft
CPT/HCPCS: 95112

== ENCOUNTER → 2018-08-07 | Outpatient (CLI) | payer OTHER, MEDICARE ==
[2018-08-07 12:38] VITALS: BP 142/34
--- NOTE | 2018-08-07 12:56 | NUR ---
PT IN FOR WEEKLY PROCRIT INJECTION. LABS DONE LAST WEEK HERE AND AGAIN THIS WEEK AT DR. JENKINS'S OFFICE. SPOKE WITH OFFICE TO CLARIFY PLAN FOR ONGOING PROCRIT. TIM RN, STATES DR. JENKINS WILL CONTINUE TO BE THE ORDERING PROVIDER AND THEY WILL LET US KNOW IF WE NEED TO DRAW LABS OR THEY WILL DO THEM IN THE OFFICE. PT UPDATED. PT WITHOUT COMPLAINTS. STATES IS DOING WELL. NO CONCERNS NOTED. PROCRIT GIVEN WITHOUT INCIDENT. PT DISMISSED IN STABLE CONDITION. GOING TO WOUND CARE TO SPEAK WITH THEM PRIOR TO DRIVING HOME. PT ALSO REPORTS THAT HE AND HIS ARE MOVING TO AN APT AT THE [place] WHERE HIS CAN RECEIVE 24 HR NURSING CARE. HE SEEMS RELIEVED WITH THIS OPTION. PLAN IS TO MOVE 08/14 I BELIEVE.
== END ==
LOC: OPONC 02:55
DX: N18.3 Chronic kidney disease, stage 3 (moderate) (principal); D63.1 Anemia in chronic kidney disease; I70.1 Atherosclerosis of renal artery; D64.9 Anemia, unspecified
CPT/HCPCS: 95112

== ENCOUNTER → 2018-08-14 | Outpatient (CLI) | payer OTHER, MEDICARE ==
[2018-08-14 13:15] VITALS: BP 131/30
== END ==
LOC: OPONC 01:31
DX: N18.3 Chronic kidney disease, stage 3 (moderate) (principal); D63.1 Anemia in chronic kidney disease; N28.89 Other specified disorders of kidney and ureter; I70.1 Atherosclerosis of renal artery
CPT/HCPCS: 95112

== ENCOUNTER → 2018-08-21 | Outpatient (CLI) | payer OTHER, MEDICARE ==
[2018-08-21 12:35] VITALS: BP 160/42
--- NOTE | 2018-08-21 12:35 | NUR ---
PT IN FOR HIS WEEKLY PROCRIT INJECTION. REPORTS DOING THE SAME, NO NEW CONCERNS. STATES JUST GOT DONE MOVING TO A NEW LIVING COMMUNITY WHERE HIS CAN GET EXTRA CARE. STATES MOVING WAS TOUGH ON HIM AND HE LOST HIS [place] RING IN THE PROCESS WHICH WAS DIFFICULT FOR HIM. OTHERWISE, ADJUSTING OK. PT DRIVES SELF TO/FROM APPTS. WILL RETURN NEXT WEEK. DISMISSED IN STABLE CONDITION POST PROCRIT INJECTION.
== END ==
LOC: OPONC 00:52
DX: N18.3 Chronic kidney disease, stage 3 (moderate) (principal); D63.1 Anemia in chronic kidney disease; N28.89 Other specified disorders of kidney and ureter; I70.1 Atherosclerosis of renal artery
CPT/HCPCS: 95112

== ENCOUNTER → 2018-08-28 | Outpatient (CLI) | payer OTHER, MEDICARE ==
[2018-08-28 13:01] VITALS: BP 163/55
--- NOTE | 2018-08-28 13:03 | NUR ---
IN FOR WEEKLY PROCRIT INJECTION. STATED FEELING OLD. DENIED PAIN. HGB 10.3/HCT 33. PROCRIT GIVEN SUBQ IN RIGHT UPPER ARM. TOLERATED WELL. TO RETURN NEXT WEEK FOR CBC AND PROCRIT INJECTION. DISMISSED TO WOUND CLINIC IN STABLE CONDITION.
== END ==
LOC: HYPER 00:54
DX: E11.622 Type 2 diabetes mellitus with other skin ulcer (principal); I70.243 Atherosclerosis of native arteries of left leg with ulceration of ankle; L97.322 Non-pressure chronic ulcer of left ankle with fat layer exposed; I70.233 Atherosclerosis of native arteries of right leg with ulceration of ankle; L97.312 Non-pressure chronic ulcer of right ankle with fat layer exposed; E11.40 Type 2 diabetes mellitus with diabetic neuropathy, unspecified; E11.39 Type 2 diabetes mellitus with other diabetic ophthalmic complication; H40.9 Unspecified glaucoma; H42 Glaucoma in diseases classified elsewhere; G60.8 Other hereditary and idiopathic neuropathies; L84 Corns and callosities; E78.00 Pure hypercholesterolemia, unspecified; I25.10 Atherosclerotic heart disease of native coronary artery without angina pectoris; Z95.0 Presence of cardiac pacemaker; Z79.84 Long term (current) use of oral hypoglycemic drugs; Z79.4 Long term (current) use of insulin; Z87.891 Personal history of nicotine dependence
CPT/HCPCS: 95112

== ENCOUNTER → 2018-09-04 | Outpatient (CLI) | payer OTHER, MEDICARE ==
[2018-09-04 12:51] VITALS: BP 141/33
[2018-09-04 13:24] LABS: HEMOGLOBIN 9.8 gm/dL (14.0-18.0); MCH 29.3 pg (26.0-34.0); MCHC 33.6 % (28.0-37.0); MCV 87.3 fL (80.0-100.0); RBC 3.33 mil/uL (4.50-6.00); RDW 17.9 % (10.5-14.5)
--- NOTE | 2018-09-04 14:00 | NUR ---
PT HERE FOR WEEKLY PROCRIT. LABS DUE TODAY. HGB 9.8. PROCRIT 10,000 UNITS GIVEN. PT REPORTS DOING WELL EXCEPT FOR ALWAYS TIRED. SCHEDULED TO RETURN IN ONE WEEK. DISMISSED IN STABLE CONDITION.
== END ==
LOC: OPONC
PROVIDERS: Internal Medicine
DX: N18.3 Chronic kidney disease, stage 3 (moderate) (principal); D63.1 Anemia in chronic kidney disease; N28.89 Other specified disorders of kidney and ureter; I70.1 Atherosclerosis of renal artery
CPT/HCPCS: 95112

== ENCOUNTER → 2018-09-11 | Outpatient (CLI) | payer OTHER, MEDICARE ==
[2018-09-11 12:12] VITALS: BP 186/43
--- NOTE | 2018-09-11 12:15 | NUR ---
IN FOR WEEKLY PROCRIT INJECTION. REPORTS DOING OK EXCEPT NOTICING INCREASE IN SWELLING BILAT LE, R>L, 2-3+. HAS COMPRESSION STOCKINGS ON. DENIES PAIN IN EITHER LEG. NO SWELLING PAST KNEES. NO DYSPNEA. LUNGS SOUND CLEAR. PT STATES HIS FACILITY NURSE HAS CHECKED ON HIM, PHONED DR. JENKINS, [facility] AND WILL F/U REGARDING MANAGEMENT OF THIS EDEMA. PROCRIT GIVEN WITHOUT INCIDENT. PT DROVE SELF HERE AND IS STOPPING AT THE [place] FOR LUNCH ON HIS WAY OUT. SCHEDULED TO RETURN IN ONE WEEK.
== END ==
LOC: OPONC 00:27
DX: N18.3 Chronic kidney disease, stage 3 (moderate) (principal); D63.1 Anemia in chronic kidney disease; N28.89 Other specified disorders of kidney and ureter; I70.1 Atherosclerosis of renal artery
CPT/HCPCS: 95112

== ENCOUNTER → 2018-09-18 | Outpatient (CLI) | payer OTHER, MEDICARE ==
[2018-09-18 12:22] VITALS: BP 165/65
== END ==
LOC: OPONC 00:48
DX: N18.3 Chronic kidney disease, stage 3 (moderate) (principal); D63.1 Anemia in chronic kidney disease; N28.89 Other specified disorders of kidney and ureter; I70.1 Atherosclerosis of renal artery
CPT/HCPCS: 95112

== ENCOUNTER → 2018-09-25 | Outpatient (CLI) | payer OTHER, MEDICARE ==
[2018-09-25 12:35] VITALS: BP 185/50
--- NOTE | 2018-09-25 12:37 | NUR ---
IN FOR WEEKLY PROCRIT INJECTION. STATED FEELING WELL TODAY WITH NO COMPLAINTS. PROCRIT GIVEN SUBQ IN CARMEN AND TOLERATED WELL. DISMISSED TO WOUND CLINIC IN STABLE CONDITION.
== END ==
LOC: HYPER 00:35
DX: E11.622 Type 2 diabetes mellitus with other skin ulcer (principal); I70.243 Atherosclerosis of native arteries of left leg with ulceration of ankle; L97.322 Non-pressure chronic ulcer of left ankle with fat layer exposed; I70.233 Atherosclerosis of native arteries of right leg with ulceration of ankle; L97.315 Non-pressure chronic ulcer of right ankle with muscle involvement without evidence of necrosis; L84 Corns and callosities; E11.51 Type 2 diabetes mellitus with diabetic peripheral angiopathy without gangrene; E11.40 Type 2 diabetes mellitus with diabetic neuropathy, unspecified; E11.39 Type 2 diabetes mellitus with other diabetic ophthalmic complication; H40.9 Unspecified glaucoma; E11.22 Type 2 diabetes mellitus with diabetic chronic kidney disease; N18.3 Chronic kidney disease, stage 3 (moderate); D63.1 Anemia in chronic kidney disease; E78.00 Pure hypercholesterolemia, unspecified; G60.8 Other hereditary and idiopathic neuropathies; I25.10 Atherosclerotic heart disease of native coronary artery without angina pectoris; K21.9 Gastro-esophageal reflux disease without esophagitis; Z86.73 Personal history of transient ischemic attack (TIA), and cerebral infarction without residual deficits; Z87.891 Personal history of nicotine dependence; Z95.1 Presence of aortocoronary bypass graft; Z79.4 Long term (current) use of insulin; Z79.84 Long term (current) use of oral hypoglycemic drugs
CPT/HCPCS: 95112

== ENCOUNTER → 2018-10-02 | Outpatient (CLI) | payer OTHER, MEDICARE ==
[2018-10-02 11:43] VITALS: BP 131/40
[2018-10-02 11:47] LABS: HEMATOCRIT 33.4 % (42.0-52.0); HEMOGLOBIN 11.3 gm/dL (14.0-18.0); MCH 28.9 pg (26.0-34.0); MCHC 33.6 g/dL (28.0-37.0); MCV 85.8 fL (80.0-100.0); RBC 3.9 mil/uL (4.50-6.00); RDW 18.5 % (10.5-14.5); WBC 7.4 thou/uL (4.0-11.0)
--- NOTE | 2018-10-02 12:08 | NUR ---
HERE FOR WEEKLY PROCRIT INJECTION. REPORTS DOING WELL. LEG EDEMA IMPROVING. LABS DRAWN TODAY, HGB 11.3, HCT 33.4. NOTIFIED DR. JENKINS WITH ORDER RECEIVED TO HOLD PROCRIT TODAY AND NEXT WEEK, RETURN 10/16 FOR REPEAT LABS AND POSSIBLE DOSE ADJUSTMENT. EXPLAINED ALL TO PT ALONG WITH RATIONALE. PT VERBALIZES UNDERSTANDING. DISMISSED IN STABLE CONDITION. REMINDED TO RETURN AGAIN 10/16.
== END ==
LOC: OPONC 01:57
PROVIDERS: Internal Medicine
DX: D61.9 Aplastic anemia, unspecified (principal); N18.3 Chronic kidney disease, stage 3 (moderate)
CPT/HCPCS: 91016

== ENCOUNTER → 2018-10-30 | Outpatient (CLI) | payer OTHER, MEDICARE ==
[2018-10-30 11:55] VITALS: BP 119/27
[2018-10-30 11:58] VITALS: BP 116/32
[2018-10-30 11:59] LABS: HEMATOCRIT 24.3 % (42.0-52.0); HEMOGLOBIN 8.3 gm/dL (14.0-18.0); MCH 28.7 pg (26.0-34.0); MCHC 34.2 g/dL (28.0-37.0); MCV 83.9 fL (80.0-100.0); RBC 2.9 mil/uL (4.50-6.00); RDW 17.5 % (10.5-14.5); WBC 6.6 thou/uL (4.0-11.0)
[2018-10-30 12:39] LABS: % SATURATION 33 % (20-39); IRON 72 ug/dL (65-175); TIBC 216 ug/dL (250-450)
--- NOTE | 2018-10-30 13:00 | NUR ---
PT WALKED OVER FROM HIS WOUND CARE APPT FOR HIS LAB CHECK AND PROCRIT. HAD MISSED 2 WEEKS AGO D/T CAR ISSUE THEN MISSED LAST WEEK BECAUSE HE TOOK A BAD FALL STRIKING FACE/FOREHEAD. HE THEN SPENT A FEW DAYS AT [facility]. PT STATES HE HAS NO RECALL OF THE FALL, JUST REMEMBERS WAKING UP ON THE STRETCHER. SINCE THAT TIME PT HAS FELT WEAKER AND UNSTEADY WHEN UP. LIVES IN AN ASSISTED LIVING FACILITY, [facility]. NURSES COME TO CHECK ON HIM FROMT HE FACILITY [facility] NURSING ACCORDING TO PT. PT HAS A CANE AT HOME BUT NO WALKER. STATES HE DOES NOT WANT PHYSICAL THERAPY WHEN ASKED ABOUT THIS. PT DOES APPEAR WEAK WHEN UP. FACE BRUISED--BILAT EYES AND FOREHEAD. DENIES DIZZINESS, HEADACHES, VISUAL DISTURBANCES. JUST WEAK. DIASTOLIC BP LOW (27-32 ON TWO CHECKS). LE EDEMA HAS RESOLVED. PT STATES THAT HE DOES NOT LET ANYONE CHANGE HIS DRESSINGS IN BETWEEN WOUND CARE APPTS. LABS REVIEWED WITH MARKED DROP IN HGB. COMMUNICATED WITH DR. JENKINS'S NURSE ALL CONCERNS: LOW BP, WEAKNESS/UNSTEADINESS, LOW HGB, LACK OF FOLLOW THROUGH WITH WOUND CARE ORDERS FOR TWICE WEEKLY DRESSING CHANGES, NEED FOR PHYSICAL THERAPY CONSULT. FAXED LABS AND WOUND CARE ORDERS. ORDERS RECEIVED TO RESUME PROCRIT AND DO WEEKLY LABS. DR. JENKINS'S NURSE WILL GET IN TOUCH WITH THE HOME HEALTH NURSE TO DO A MED REVIEW IN THE HOME PT CANNOT TELL ME WHAT MEDS HE IS ON (SOMEONE SETS THESE UP FOR HIM) AND TO EVALUATE PT'S SITUATION FOR SAFETY. MEANWHILE, PT SET UP FOR RETURN VISITS. INSTRUCTED TO CALL DR. JENKINS IF HE FEELS ANY WORSE OR NEEDS ANYTHING. PT VERBALIZED UNDERSTANDING. PT TAKEN PER WC TO ENTRANCE FOR PT SWIMMING INSTRUCTOR BY THE [facility] WHEELCHAIR SERVICE. PT UPSET BY DEPENDENCE ON TRANSPORTATION. STATES THEY TOOK HIS KEYS AND CAR AWAY FROM HIM.
== END ==
LOC: HYPER 10-23 07:03
PROVIDERS: Internal Medicine
DX: E11.622 Type 2 diabetes mellitus with other skin ulcer (principal); I70.243 Atherosclerosis of native arteries of left leg with ulceration of ankle; L97.322 Non-pressure chronic ulcer of left ankle with fat layer exposed; I70.233 Atherosclerosis of native arteries of right leg with ulceration of ankle; L97.312 Non-pressure chronic ulcer of right ankle with fat layer exposed; E11.621 Type 2 diabetes mellitus with foot ulcer; L97.521 Non-pressure chronic ulcer of other part of left foot limited to breakdown of skin; E11.51 Type 2 diabetes mellitus with diabetic peripheral angiopathy without gangrene; E11.40 Type 2 diabetes mellitus with diabetic neuropathy, unspecified; E11.39 Type 2 diabetes mellitus with other diabetic ophthalmic complication; H40.9 Unspecified glaucoma; H42 Glaucoma in diseases classified elsewhere; E11.22 Type 2 diabetes mellitus with diabetic chronic kidney disease; I12.9 Hypertensive chronic kidney disease with stage 1 through stage 4 chronic kidney disease, or unspecified chronic kidney disease; N18.3 Chronic kidney disease, stage 3 (moderate); D63.1 Anemia in chronic kidney disease; G60.8 Other hereditary and idiopathic neuropathies; L84 Corns and callosities; I25.10 Atherosclerotic heart disease of native coronary artery without angina pectoris; E78.00 Pure hypercholesterolemia, unspecified; Z95.1 Presence of aortocoronary bypass graft; Z87.891 Personal history of nicotine dependence; Z79.4 Long term (current) use of insulin; Z79.84 Long term (current) use of oral hypoglycemic drugs
CPT/HCPCS: 95112

== ENCOUNTER → 2018-11-06 | Outpatient (CLI) | payer OTHER, MEDICARE ==
[2018-11-06 11:59] LABS: HEMATOCRIT 25.1 % (42.0-52.0); HEMOGLOBIN 8.7 gm/dL (14.0-18.0)
[2018-11-06 14:09] VITALS: BP 127/26
--- NOTE | 2018-11-06 14:31 | NUR ---
IN FOR WEEKLY H&H AND PROCRIT. HGB 8.6/ HCT 25.1. PROCRIT 10,000 UNITS GIVEN SUBQ IN LEFT UPPER ARM. TO RETURN IN ONE WEEK FOR NEXT INJECTION. DISMISSED IN STABLE CONDITION.
== END ==
LOC: OPONC 00:44
PROVIDERS: Internal Medicine
DX: D61.9 Aplastic anemia, unspecified (principal); N18.3 Chronic kidney disease, stage 3 (moderate); N28.89 Other specified disorders of kidney and ureter; I70.1 Atherosclerosis of renal artery
CPT/HCPCS: 95112